=== PATIENT | female | born 1945 | race Caucasian/White ===

== ENCOUNTER 2019-06-18 13:18 | Inpatient (IN) | payer MEDICARE, BC ==
[~2019-06-18] VITALS: Ht 162.6 cm; Wt 51.7 kg
[2019-06-18 14:18] LABS: BASOPHILS # (AUTO) 0.1 X10'3 (0-0.2); BASOPHILS % (AUTO) 0.8 % (0-1); EOSINOPHILS # (AUTO) 0.1 X10'3 (0-0.9); EOSINOPHILS % (AUTO) 0.7 % (0-6); HEMATOCRIT 36.6 % (35.0-45.0); HEMOGLOBIN 12.3 g/dl (12.0-16.0); LYMPHOCYTES # (AUTO) 1.5 X10'3 (1.1-4.8); LYMPHOCYTES % (AUTO) 16.4 % (21-51); MEAN CORPUSCULAR HEMOGLOBIN 31.5 PG (27.0-31.0); MEAN CORPUSCULAR HGB CONC 33.5 g/dL (33.0-36.5); MONOCYTES # (AUTO) 0.7 X10'3 (0-0.9); MONOCYTES % (AUTO) 7.4 % (2-12); NEUTROPHILS % (AUTO) 74.7 % (42-75); PLATELET COUNT 362 X10'3 (140-440); RED BLOOD COUNT 3.89 X10'6 (4.20-5.60); RED CELL DISTRIBUTION WIDTH 12.4 % (11.5-14.5); WHITE BLOOD COUNT 9.4 X10'3 (4.5-11.0)
[2019-06-18] MEDS ORDERED: benzonatate 100mg capsule PO ONE (14:45)
[2019-06-18 14:49] LABS: ALANINE AMINOTRANSFERASE 59 U/L (12-78); ALBUMIN 2.8 G/DL (3.4-5.0); ALBUMIN/GLOBULIN RATIO 0.6 (1.1-1.5); ALKALINE PHOSPHATASE 249 IU/L (46-116); ANION GAP 13 (8-16); ASPARTATE AMINO TRANSFERASE 35 U/L (10-37); BILIRUBIN,TOTAL 0.5 MG/DL (0.1-1.0); BLOOD UREA NITROGEN 12 MG/DL (7-18); BUN/CREATININE RATIO 12.1 (6.6-38.0); CALCIUM 9.3 MG/DL (8.5-10.1); CHLORIDE 103 MMOL/L (99-107); CREATININE 0.99 MG/DL (0.40-0.90); GLUCOSE 104 MG/DL (70-104); SODIUM 142 MMOL/L (135-145); TOTAL CARBON DIOXIDE 25.7 MMOL/L (24-32); TOTAL PROTEIN 7.8 G/DL (6.4-8.2); eGFR 55 ML/MIN
[2019-06-18 14:55] LABS: POTASSIUM 2.8 MMOL/L (3.5-5.1)
[2019-06-18] MEDS ORDERED: dexamethasone sod phosphate 10mg/ml inj IV STA (14:58)
[2019-06-18] MEDS ORDERED: ipratropium/albuterol 3ml nebule NEB ONE (15:00)
[2019-06-18] MEDS ORDERED: normal saline 1000ML IV soln IVB ONE (15:00)
[2019-06-18] MEDS ORDERED: azithromycin/NS 500mg/250ml 250 ML IV ONE (15:00)
[2019-06-18] MEDS ORDERED: potassium Cl 10 mEq/100mL bag IV ONE (15:05)
[2019-06-18] MEDS ORDERED: magnesium 2GM in 50ml NS 50 ML IV ONE (15:05)
[2019-06-18] MEDS ORDERED: potassium CL 10mEq/100ml bag 100 ML IV PRN (16:45)
[2019-06-18] MEDS ORDERED: potassium Cl 20 mEq SR tablet PO PRN ×2 (16:45)
[2019-06-18] MEDS ORDERED: ondansetron/PF 4mg/2ml inj IV PRN (16:45)
[2019-06-18] MEDS ORDERED: acetaminophen 325mg tablet PO PRN (16:45)
[2019-06-18] MEDS ORDERED: HYDROcodone/acetaminophen 5mg/325mg tablet PO PRN (16:45)
[2019-06-18] MEDS ORDERED: FLUO20CA39 PO ×2 (16:52→16:54)
[2019-06-18] MEDS ORDERED: LEVO75TA PO (16:53)
[2019-06-18] MEDS ORDERED: oseltamivir phos 75mg capsule PO ONE (16:55)
[2019-06-18] MEDS ORDERED: ATOR10TA PO (16:55)
[2019-06-18 17:06] LABS: CLARITY,URINE SLIGHTLY CLOUDY (Clear); COLOR,URINE YELLOW (Yellow); GLUCOSE, URINE NEGATIVE (Neg); KETONES,URINE 15 mg/dl (Neg); LEUKOCYTE ESTERASE ,URINE SMALL (Neg); NITRITES, URINE NEGATIVE (Neg); OCCULT BLOOD,URINE TRACE-INTACT (Neg); PROTEIN,URINE 30 mg/dl (Neg)
[2019-06-18 17:07] LABS: UA COLLECTION TYPE CLN CATCH MIDSTREAM
[2019-06-18 17:11] LABS: BACTERIA,URINE 1+ /HPF (Neg); RBC,URINE 0-2 /HPF (0-2); SQUAMOUS EPITHELIAL CELL,UR MODERATE /LPF (FEW)
[2019-06-18 17:12] LABS: MUCUS STRANDS MODERATE /LPF (Neg); WBC CLUMPS,URINE FEW /HPF (NEGATIVE); WBC,URINE 50-100 /HPF (0-4)
[2019-06-18 17:30] LABS: CHOL/HDL RATIO 3.1 (0.00-4.99); CHOLESTEROL 138 MG/DL (0-200); HDL CHOLESTEROL 44 MG/DL (35-60); LDL CHOLESTEROL 75 MG/DL (50-100); TRIGLYCERIDES 111 MG/DL (20-135)
[2019-06-18] MEDS: normal saline 1000ml 1,000 ML IV SCH ×2 (17:36→20:06)
[2019-06-18] MEDS: potassium CL 10mEq/100ml bag 100 ML IV PRN ×3 (20:05→23:50)
[2019-06-18] MEDS: heparin, porcine 5000 units/ml vial SQ SCH (20:15)
[2019-06-18 20:30] VITALS: BP 136/60
--- NOTE | 2019-06-18 20:30 | NUR ---
Stephon called to give me report and go over plan of care 1944. I had the opportunity to ask questions. 1999 patient arrived via gurney with nurse transporting. Patient walked to hospital bed, in no apparent distress. Will continue to monitor.
[2019-06-18] MEDS ORDERED: codeine/proMETHazine 5ml UD syrup PO SCH (21:00)
[2019-06-18] MEDS ORDERED: temazepam 15mg capsule PO PRN (21:00)
[2019-06-19 01:02] VITALS: BP 153/57
[2019-06-19] MEDS: guaiFENesin/codeine phos 10ml UD oral syrup PO PRN ×2 (01:43→20:45)
[2019-06-19] MEDS: potassium CL 10mEq/100ml bag 100 ML IV PRN ×2 (01:45→05:11)
[2019-06-19] MEDS: normal saline 1000ml 1,000 ML IV SCH ×2 (03:46→03:50)
[2019-06-19 04:51] LABS: BASOPHILS % (AUTO) 0.1 % (0-1); EOSINOPHILS % (AUTO) 0 % (0-6); HEMOGLOBIN 10.2 g/dl (12.0-16.0); LYMPHOCYTES # (AUTO) 0.7 X10'3 (1.1-4.8); LYMPHOCYTES % (AUTO) 10.1 % (21-51); MEAN CORPUSCULAR HEMOGLOBIN 31.2 PG (27.0-31.0); MEAN CORPUSCULAR VOLUME 94.6 FL (78-98); MEAN PLATELET VOLUME 9.1 FL (7.4-10.4); MONOCYTES # (AUTO) 0.3 X10'3 (0-0.9); MONOCYTES % (AUTO) 4.6 % (2-12); NEUTROPHILS # (AUTO) 6.2 X10'3 (1.8-7.7); NEUTROPHILS % (AUTO) 85.2 % (42-75); PLATELET COUNT 270 X10'3 (140-440); RED BLOOD COUNT 3.27 X10'6 (4.20-5.60); RED CELL DISTRIBUTION WIDTH 12.6 % (11.5-14.5); WHITE BLOOD COUNT 7.2 X10'3 (4.5-11.0)
[2019-06-19 04:59] LABS: ALBUMIN 2.3 G/DL (3.4-5.0); ANION GAP 13 (8-16); BLOOD UREA NITROGEN 11 MG/DL (7-18); BUN/CREATININE RATIO 14.9 (6.6-38.0); CALCIUM 7.4 MG/DL (8.5-10.1); CHLORIDE 109 MMOL/L (99-107); CREATININE 0.74 MG/DL (0.40-0.90); GLUCOSE 124 MG/DL (70-104); POTASSIUM 3.4 MMOL/L (3.5-5.1); SODIUM 145 MMOL/L (135-145); TOTAL CARBON DIOXIDE 22.8 MMOL/L (24-32); eGFR 77 ML/MIN
--- NOTE | 2019-06-19 06:06 | NUR ---
Problems reprioritized. Patient report given, questions answered & plan of care reviewed with ALEX Hurtado.
--- NOTE | 2019-06-19 06:10 | NUR ---
Patient in room [facility]. I have received report from ALEX Snow and had the opportunity to ask questions and assume patient care.
[2019-06-19 07:00] VITALS: BP 114/57
[2019-06-19] MEDS ORDERED: FLUoxetine 20mg capsule PO SCH (08:00)
[2019-06-19] MEDS: K and/or MAG REPLACEMENT MC SCH (08:00)
[2019-06-19] MEDS: heparin, porcine 5000 units/ml vial SQ SCH ×2 (08:00→20:43)
[2019-06-19] MEDS ORDERED: potassium Cl 20 mEq SR tablet PO STA (10:25)
[2019-06-19] MEDS: levoTHYROXINE 75mcg tablet PO SCH (10:39)
[2019-06-19 11:00] VITALS: BP 136/67
[2019-06-19] MEDS: CefTRIAXone/D5W-Rocephin 1gm 50 ML IV SCH (15:27)
--- NOTE | 2019-06-19 18:36 | NUR ---
Patient in room [facility]. I have received report from ALEX Hurtado and had the opportunity to ask questions and assume patient care. Addendum: 06/19/19 at 1836 by Lynn Diamond RN Amended: Links added.
--- NOTE | 2019-06-19 18:36 | NUR ---
Problems reprioritized. Patient report given, questions answered & plan of care reviewed with Nicolette Eaton RN.
[2019-06-19 20:00] VITALS: BP 113/57
[2019-06-19] MEDS: lactobacillus rhamnosus 10,000 MMU CELLS/CAPSULE PO SCH (20:43)
[2019-06-20 00:37] VITALS: BP 120/58
[2019-06-20 04:31] LABS: BASOPHILS # (AUTO) 0.1 X10'3 (0-0.2); BASOPHILS % (AUTO) 0.6 % (0-1); EOSINOPHILS # (AUTO) 0.1 X10'3 (0-0.9); EOSINOPHILS % (AUTO) 0.8 % (0-6); HEMATOCRIT 29.7 % (35.0-45.0); LYMPHOCYTES # (AUTO) 2.5 X10'3 (1.1-4.8); LYMPHOCYTES % (AUTO) 26.8 % (21-51); MEAN CORPUSCULAR HEMOGLOBIN 31.7 PG (27.0-31.0); MEAN CORPUSCULAR HGB CONC 33.6 g/dL (33.0-36.5); MEAN CORPUSCULAR VOLUME 94.4 FL (78-98); MEAN PLATELET VOLUME 8.4 FL (7.4-10.4); MONOCYTES # (AUTO) 0.6 X10'3 (0-0.9); NEUTROPHILS # (AUTO) 6.1 X10'3 (1.8-7.7); NEUTROPHILS % (AUTO) 65.8 % (42-75); PLATELET COUNT 278 X10'3 (140-440); RED BLOOD COUNT 3.14 X10'6 (4.20-5.60); RED CELL DISTRIBUTION WIDTH 12.9 % (11.5-14.5); WHITE BLOOD COUNT 9.3 X10'3 (4.5-11.0)
[2019-06-20 05:22] LABS: ALBUMIN 2.3 G/DL (3.4-5.0); ANION GAP 9 (8-16); BLOOD UREA NITROGEN 10 MG/DL (7-18); BUN/CREATININE RATIO 11.1 (6.6-38.0); CALCIUM 8.1 MG/DL (8.5-10.1); CHLORIDE 109 MMOL/L (99-107); GLUCOSE 86 MG/DL (70-104); MAGNESIUM 2.2 MG/DL (1.5-2.4); PHOSPHORUS 2.4 MG/DL (2.3-4.5); POTASSIUM 3.6 MMOL/L (3.5-5.1); SODIUM 143 MMOL/L (135-145); TOTAL CARBON DIOXIDE 24.6 MMOL/L (24-32); eGFR 61 ML/MIN
--- NOTE | 2019-06-20 06:31 | NUR ---
Patient in room [facility]. I have received report from Nicolette Eaton RN and had the opportunity to ask questions and assume patient care.
--- NOTE | 2019-06-20 06:43 | NUR ---
Problems reprioritized. Patient report given, questions answered & plan of care reviewed with ALEX Hurtado.
[2019-06-20 07:00] VITALS: BP 111/47
[2019-06-20] MEDS: K and/or MAG REPLACEMENT MC SCH (08:00)
[2019-06-20] MEDS: lactobacillus rhamnosus 10,000 MMU CELLS/CAPSULE PO SCH ×2 (10:28→19:28)
[2019-06-20] MEDS: levoTHYROXINE 75mcg tablet PO SCH (10:28)
[2019-06-20] MEDS: CefTRIAXone/D5W-Rocephin 1gm 50 ML IV SCH (10:29)
[2019-06-20] MEDS: heparin, porcine 5000 units/ml vial SQ SCH ×2 (10:34→19:28)
[2019-06-20] MEDS: FLUoxetine 20mg capsule PO SCH (10:49)
[2019-06-20] MEDS: acetaminophen 325mg tablet PO PRN ×2 (10:52→19:28)
[2019-06-20 11:00] VITALS: BP 135/57
--- NOTE | 2019-06-20 18:08 | NUR ---
Problems reprioritized. Patient report given, questions answered & plan of care reviewed with Nicolette Eaton RN.
--- NOTE | 2019-06-20 18:11 | NUR ---
Patient in room [facility]. I have received report from ALEX COLLADO and had the opportunity to ask questions and assume patient care. Addendum: 06/20/19 at 1811 by Lynn Diamond RN Amended: Links added.
[2019-06-20 20:00] VITALS: BP 124/58
[2019-06-21] VITALS: BP 137/82
[2019-06-21 04:56] LABS: BASOPHILS # (AUTO) 0.1 X10'3 (0-0.2); BASOPHILS % (AUTO) 1.1 % (0-1); EOSINOPHILS # (AUTO) 0.2 X10'3 (0-0.9); EOSINOPHILS % (AUTO) 2.6 % (0-6); HEMATOCRIT 30.5 % (35.0-45.0); HEMOGLOBIN 10.2 g/dl (12.0-16.0); LYMPHOCYTES # (AUTO) 2.1 X10'3 (1.1-4.8); LYMPHOCYTES % (AUTO) 34.2 % (21-51); MEAN CORPUSCULAR HEMOGLOBIN 31.6 PG (27.0-31.0); MEAN CORPUSCULAR HGB CONC 33.4 g/dL (33.0-36.5); MEAN CORPUSCULAR VOLUME 94.6 FL (78-98); MEAN PLATELET VOLUME 8.5 FL (7.4-10.4); MONOCYTES # (AUTO) 0.4 X10'3 (0-0.9); MONOCYTES % (AUTO) 6.1 % (2-12); NEUTROPHILS # (AUTO) 3.4 X10'3 (1.8-7.7); PLATELET COUNT 292 X10'3 (140-440); RED BLOOD COUNT 3.22 X10'6 (4.20-5.60); RED CELL DISTRIBUTION WIDTH 12.6 % (11.5-14.5); WHITE BLOOD COUNT 6.1 X10'3 (4.5-11.0)
[2019-06-21 05:10] LABS: ALBUMIN 2.2 G/DL (3.4-5.0); ANION GAP 5 (8-16); BLOOD UREA NITROGEN 6 MG/DL (7-18); BUN/CREATININE RATIO 7.6 (6.6-38.0); CHLORIDE 109 MMOL/L (99-107); CREATININE 0.79 MG/DL (0.40-0.90); GLUCOSE 90 MG/DL (70-104); POTASSIUM 3.5 MMOL/L (3.5-5.1); SODIUM 144 MMOL/L (135-145); TOTAL CARBON DIOXIDE 29.7 MMOL/L (24-32); eGFR 71 ML/MIN
--- NOTE | 2019-06-21 06:45 | NUR ---
Problems reprioritized. Patient report given, questions answered & plan of care reviewed with ALEX Winkler.
--- NOTE | 2019-06-21 06:47 | NUR ---
Patient in room [facility]. I have received report from nahid boudreaux rn and had the opportunity to ask questions and assume patient care.
[2019-06-21 07:00] VITALS: BP 138/64
[2019-06-21] MEDS: CefTRIAXone/D5W-Rocephin 1gm 50 ML IV SCH (08:00)
[2019-06-21] MEDS: K and/or MAG REPLACEMENT MC SCH (08:00)
[2019-06-21] MEDS: heparin, porcine 5000 units/ml vial SQ SCH (08:01)
[2019-06-21] MEDS: lactobacillus rhamnosus 10,000 MMU CELLS/CAPSULE PO SCH (08:02)
[2019-06-21] MEDS: levoTHYROXINE 75mcg tablet PO SCH (08:02)
[2019-06-21] MEDS: FLUoxetine 20mg capsule PO SCH (08:02)
[2019-06-21] MEDS: acetaminophen 325mg tablet PO PRN (08:18)
[2019-06-21 11:00] VITALS: BP 115/57
--- NOTE | 2019-06-21 12:24 | NUR ---
patient seen by Dr Corbin, cdiff sample ordered for loose stool x2 days.. awaiting results. other meng appears stable.
[2019-06-21 13:56] LABS: C DIFF ANTIGEN NEGATIVE (NEGATIVE); C DIFF SPECIMEN=DIARRHEA? ACCEPTABLE; C DIFFICILE TOXINS A&B NEGATIVE (Neg)
[2019-06-21] MEDS ORDERED: LACT1CAP26 PO (15:23)
[2019-06-21] MEDS ORDERED: CEFD300C3 PO (15:23)
--- NOTE | 2019-06-21 16:46 | NUR ---
stool sample negative. patient for DC. All instructions given to patient. patient DC home in stable condition 1645hrs, via private car to home. with daughter.
== END 2019-06-21 16:39 | disposition home or self-care (01) | DRG 690 ==
LOC: ER 13:19 → OBSVTOIN 19:48 → SUR 3N 19:48 → CMPBEDREQ 19:58
PROVIDERS: ADMIT Internal Medicine; ATTEND Hospitalist
DX: N39.0 Urinary tract infection, site not specified (principal); E87.6 Hypokalemia; R19.7 Diarrhea, unspecified; T36.95XA Adverse effect of unspecified systemic antibiotic, initial encounter; J06.9 Acute upper respiratory infection, unspecified; Z87.442 Personal history of urinary calculi; Z87.891 Personal history of nicotine dependence
CPT/HCPCS: 36415; 71046; 80048; 80053; 80061; 81001; 83605; 83735; 84100; 84443; 85025; 87040; 87081; 87088; 87324; 87449; 87502; 87503; 94640; 94760; 96365; 96366; 96368; 96375; 97116; 97161; 97530; 99285; G0378; J0456; J0696; J1100; J1644; J2405; J3475; J3480; J7030

== ENCOUNTER 2019-08-02 14:24 | Inpatient (IN) | payer MEDICARE, BC ==
[~2019-08-02] VITALS: Ht 162.6 cm; Wt 58.0 kg
[~2019-08-02 14:24] MED LIST: ATOR10TA PO; FLUO20CA39 PO; LACT1CAP26 PO; LEVO75TA PO
[2019-08-02] MEDS ORDERED: ondansetron/PF 4mg/2ml inj IV ONE (14:30)
[2019-08-02] MEDS ORDERED: normal saline 1000ML IV soln IVB ONE (14:30)
[2019-08-02 14:46] LABS: BASOPHILS # (AUTO) 0.1 X10'3 (0-0.2); BASOPHILS % (AUTO) 0.9 % (0-1); EOSINOPHILS # (AUTO) 0.1 X10'3 (0-0.9); EOSINOPHILS % (AUTO) 0.7 % (0-6); HEMATOCRIT 36.6 % (35.0-45.0); HEMOGLOBIN 12.5 g/dl (12.0-16.0); LYMPHOCYTES # (AUTO) 3.1 X10'3 (1.1-4.8); LYMPHOCYTES % (AUTO) 43.6 % (21-51); MEAN CORPUSCULAR HEMOGLOBIN 32.1 PG (27.0-31.0); MEAN CORPUSCULAR HGB CONC 34.1 g/dL (33.0-36.5); MEAN PLATELET VOLUME 9.4 FL (7.4-10.4); MONOCYTES # (AUTO) 0.4 X10'3 (0-0.9); MONOCYTES % (AUTO) 6.4 % (2-12); NEUTROPHILS # (AUTO) 3.4 X10'3 (1.8-7.7); NEUTROPHILS % (AUTO) 48.4 % (42-75); PLATELET COUNT 259 X10'3 (140-440); RED BLOOD COUNT 3.89 X10'6 (4.20-5.60); RED CELL DISTRIBUTION WIDTH 13.4 % (11.5-14.5)
[2019-08-02] MEDS ORDERED: BUSP10TA3 PO (15:00)
[2019-08-02] MEDS ORDERED: ALEN70TA13 PO (15:00)
[2019-08-02 15:01] LABS: ALANINE AMINOTRANSFERASE 24 U/L (12-78); ALBUMIN 3.5 G/DL (3.4-5.0); ALBUMIN/GLOBULIN RATIO 0.9 (1.1-1.5); ALKALINE PHOSPHATASE 91 IU/L (46-116); ANION GAP 17 (8-16); ASPARTATE AMINO TRANSFERASE 18 U/L (10-37); BILIRUBIN,TOTAL 0.4 MG/DL (0.1-1.0); BLOOD UREA NITROGEN 12 MG/DL (7-18); CALCIUM 9.9 MG/DL (8.5-10.1); CHLORIDE 106 MMOL/L (99-107); GLUCOSE 135 MG/DL (70-104); LIPASE 152 U/L (73-393); SODIUM 143 MMOL/L (135-145); TOTAL PROTEIN 7.4 G/DL (6.4-8.2); eGFR 54 ML/MIN
[2019-08-02] MEDS ORDERED: LACT1CAP26 PO (15:01)
[2019-08-02 15:04] LABS: POTASSIUM 2.7 MMOL/L (3.5-5.1)
[2019-08-02] MEDS ORDERED: CHOL50004 PO (15:04)
[2019-08-02] MEDS ORDERED: VITA400C19 PO (15:04)
[2019-08-02] MEDS ORDERED: potassium Cl 10 mEq/100mL bag IV ONE (15:05)
[2019-08-02] MEDS ORDERED: potassium Cl 20 mEq SR tablet PO STA (15:05)
[2019-08-02] MEDS: morphine 4 MG/ML inj SYRINge IV PRN ×2 (15:25→15:48)
--- NOTE | 2019-08-02 16:07 | NUR ---
DOUGLAS CATH #16 FR INSERTED AND DRAINING YELLOW URINE.
[2019-08-02] MEDS ORDERED: mag hydrox/Alum hydrox/simeth 30ml oral suspension PO PRN (16:20)
[2019-08-02] MEDS ORDERED: magnesium 4gm in 100ml NS 100 ML IV PRN (16:20)
[2019-08-02] MEDS ORDERED: magnesium hydroxide 30ml (MOM) UD suspension PO PRN (16:20)
[2019-08-02] MEDS ORDERED: magnesium Cl slow-release 64mg tablet PO PRN (16:20)
[2019-08-02] MEDS ORDERED: potassium Cl 20 mEq SR tablet PO PRN (16:20)
[2019-08-02] MEDS ORDERED: acetaminophen 325mg tablet PO PRN ×2 (16:20)
[2019-08-02] MEDS ORDERED: magnesium 2GM in 50ml NS 50 ML IV PRN (16:20)
[2019-08-02] MEDS ORDERED: morphine 2 MG/ML inj. syringe IV PRN (16:20)
[2019-08-02] MEDS ORDERED: potassium CL 10mEq/100ml bag 100 ML IV PRN ×2 (16:20)
--- NOTE | 2019-08-02 16:20 | NUR ---
1620 PATIENT MOVED TO ORTHO BED WITH OVERHEAD FRAME AND TRAPEZE. WOOD HEEL FLAP INSERTER HERE AND APPLIED BUCKS TRACTION 5# TO RIGHT LEG.
--- NOTE | 2019-08-02 16:43 | NUR ---
AMANDA NURSE IN ROOM. FAMILY AT BEDSIDE.
[2019-08-02 16:54] LABS: CLARITY,URINE CLEAR (Clear); COLOR,URINE YELLOW (Yellow); GLUCOSE, URINE NEGATIVE (Neg); KETONES,URINE NEGATIVE (Neg); LEUKOCYTE ESTERASE ,URINE NEGATIVE (Neg); NITRITES, URINE NEGATIVE (Neg); OCCULT BLOOD,URINE TRACE-LYSED (Neg); PH,URINE 7.5 (4.8-8.0); PROTEIN,URINE NEGATIVE (Neg); UROBILINOGEN,URINE 0.2 E.U/dL (0.2-1.0)
[2019-08-02 17:01] LABS: UA COLLECTION TYPE OTHER
[2019-08-02 17:06] LABS: BACTERIA,URINE NONE SEEN /HPF (Neg); MUCUS STRANDS FEW /LPF (Neg); RBC,URINE 0-2 /HPF (0-2); SQUAMOUS EPITHELIAL CELL,UR FEW /LPF (FEW); TRANSITIONAL EPI CELLS,URINE FEW /HPF; WBC,URINE 0-4 /HPF (0-4)
[2019-08-02] MEDS ORDERED: non-formulary drug (Alendronate Sodium 1 TABLET) PO SCH (17:40)
[2019-08-02] MEDS: normal saline 1000ml 1,000 ML IV SCH (17:48)
--- NOTE | 2019-08-02 18:02 | NUR ---
DAUGHTER IS GONE FOR NOW. DOZING IN BED WITH BUCKS TX INTACT TO RIGHT LEG WITH 5# WEIGHT. VSS. CALM AT THIS TIME AND PAIN IS LESS THAN IT WAS ON ARRIVAL TO ER.
[2019-08-02 19:30] VITALS: BP 150/71
--- NOTE | 2019-08-02 19:30 | NUR ---
Received report from Caroline JOHNSON in the ED. patient is currently stable with daughter at bedside.
[2019-08-02] MEDS: busPIRone 5mg tablet PO SCH (19:44)
[2019-08-02] MEDS: heparin, porcine 5000 units/ml vial SQ SCH (19:45)
[2019-08-02] MEDS: HYDROcodone/acetaminophen 5mg/325mg tablet PO PRN (19:45)
[2019-08-02] MEDS: potassium Cl 20 mEq SR tablet PO PRN ×2 (19:46→23:47)
[2019-08-02] MEDS ORDERED: temazepam 15mg capsule PO PRN (21:00)
[2019-08-02 22:00] VITALS: BP 143/59
[2019-08-02] MEDS: morphine 2 MG/ML inj. syringe IV PRN (22:34)
[2019-08-02] MEDS: HYDROcodone/acetaminophen 10/325mg tab PO PRN (23:41)
[2019-08-03] VITALS (20 sets, daily range): BP systolic 86–109; BP diastolic 34–56
[2019-08-03] MEDS: morphine 2 MG/ML inj. syringe IV PRN ×2 (03:05→07:22)
[2019-08-03] MEDS: potassium Cl 20 mEq SR tablet PO PRN (03:55)
[2019-08-03] MEDS: normal saline 1000ml 1,000 ML IV SCH ×2 (05:39→15:32)
--- NOTE | 2019-08-03 06:00 | NUR ---
Patient in room [facility] 4020. I have received report from Eleanor JOHNSON and had the opportunity to ask questions and assume patient care.
--- NOTE | 2019-08-03 06:00 | NUR ---
Gave report to Mesha JOHNSON.
[2019-08-03] MEDS: HYDROcodone/acetaminophen 10/325mg tab PO PRN ×3 (06:13→19:07)
[2019-08-03 06:19] LABS: BASOPHILS % (AUTO) 0.3 % (0-1); EOSINOPHILS % (AUTO) 0.1 % (0-6); HEMATOCRIT 31.3 % (35.0-45.0); HEMOGLOBIN 10.5 g/dl (12.0-16.0); LYMPHOCYTES % (AUTO) 13.2 % (21-51); MEAN CORPUSCULAR HEMOGLOBIN 32.2 PG (27.0-31.0); MEAN CORPUSCULAR HGB CONC 33.5 g/dL (33.0-36.5); MEAN CORPUSCULAR VOLUME 96.1 FL (78-98); MEAN PLATELET VOLUME 9.6 FL (7.4-10.4); MONOCYTES # (AUTO) 0.6 X10'3 (0-0.9); MONOCYTES % (AUTO) 8.5 % (2-12); NEUTROPHILS # (AUTO) 5.8 X10'3 (1.8-7.7); NEUTROPHILS % (AUTO) 77.9 % (42-75); PLATELET COUNT 181 X10'3 (140-440); RED BLOOD COUNT 3.26 X10'6 (4.20-5.60); RED CELL DISTRIBUTION WIDTH 13.7 % (11.5-14.5); WHITE BLOOD COUNT 7.4 X10'3 (4.5-11.0)
[2019-08-03 06:26] LABS: ALBUMIN 2.9 G/DL (3.4-5.0); ANION GAP 7 (8-16); BLOOD UREA NITROGEN 11 MG/DL (7-18); BUN/CREATININE RATIO 13.1 (6.6-38.0); CALCIUM 7.7 MG/DL (8.5-10.1); CHLORIDE 108 MMOL/L (99-107); CREATININE 0.84 MG/DL (0.40-0.90); GLUCOSE 101 MG/DL (70-104); MAGNESIUM 1.9 MG/DL (1.5-2.4); POTASSIUM 3.8 MMOL/L (3.5-5.1); SODIUM 141 MMOL/L (135-145); TOTAL CARBON DIOXIDE 26.3 MMOL/L (24-32); eGFR 66 ML/MIN
[2019-08-03] MEDS: FLUoxetine 20mg capsule PO SCH (07:29)
[2019-08-03] MEDS: vitamin D (cholecalciferol) 1,000 unit tablet PO SCH (07:30)
[2019-08-03] MEDS: atorvastatin 10mg tablet PO SCH (07:32)
[2019-08-03] MEDS: busPIRone 5mg tablet PO SCH ×2 (07:32→19:07)
[2019-08-03] MEDS: K and/or MAG REPLACEMENT MC SCH (08:00)
[2019-08-03] MEDS: vitamin E 400 unit capsule PO SCH (08:00)
[2019-08-03] MEDS ORDERED: levoTHYROXINE 75mcg tablet PO SCH (08:00)
[2019-08-03] MEDS: heparin, porcine 5000 units/ml vial SQ SCH (08:00)
[2019-08-03] MEDS ORDERED: ringers solution, lacted 1,000 ML IV SCH (10:57)
[2019-08-03] MEDS: levoTHYROXINE 88mcg tablet PO SCH (11:00)
[2019-08-03] MEDS ORDERED: meperidine/PF 25mg/ml syringe IV PRN ×3 (11:00)
[2019-08-03] MEDS ORDERED: proCHLORperazine 10 MG/2 ml inj IV PRN (11:00)
[2019-08-03] MEDS ORDERED: morphine 4 MG/ML inj SYRINge IV PRN ×2 (11:00)
[2019-08-03] MEDS ORDERED: ondansetron/PF 4mg/2ml inj IV PRN (11:00)
[2019-08-03] MEDS ORDERED: ePHEDrine 50MG/ML INJ. ONE (11:08)
[2019-08-03] MEDS ORDERED: midazolam 2 mg/2 ml injection ONE (11:11)
[2019-08-03] MEDS ORDERED: fentaNYL/PF 50MCG/1 ML 2ML syringe ONE (11:11)
--- NOTE | 2019-08-03 12:32 | NUR ---
Received from OR via ORTHO BED WITH MSKIMBERLEE , accompanied by Anesthesiologist QUOC and report given by Anesthesiolgist. PATIENT WITH 20G PIV IN LEFT AC RUNNING LR AT 100. DENIES PAIN HOWEVER HAS FULL SENSATION. + DP TO RIGHT FOOT. RIGHT HIP DRESSINGS ARE CDI. 2 SEPARATE SITES. 3L NASAL CANNULA PRESENT WITH 3LPM AND 95% SATURATIONS. SCDS DONNED. DOUGLAS CATHETER PRESENT WITH CLEAR YELLOW URINE PRESENT. Addendum: 08/03/19 at 1243 by Sudheer Toussaint RN, RN Amended: Links added.
--- NOTE | 2019-08-03 13:22 | NUR ---
ALL CRITERIA FOR TRANSFER TO THE FLOOR HAS BEEN ACHIEVED. VSS. BED LOW, CALL LIGHT AND VS. SET IN PLACE. RN PRESENT TO ACCEPT CARE. PATIENT RESTING COMFORTABLY IN BED. BELONGINGS SENT WITH PATIENT. DRESSINGS CDI. ALEX MARTINEZ PRESENT TO ACCEPT CARE OF PATIENT. VSS. DAUGHTER AT BEDSIDE. Addendum: 08/03/19 at 1323 by Sudheer Bautista - ALEX JOHNSON Amended: Links added.
[2019-08-03] MEDS: ondansetron/PF 4mg/2ml inj IV PRN (14:18)
[2019-08-03] MEDS: ceFAZolin 1GM/D5W- ADD-VANTAGE 50 ML IV SCH (16:12)
--- NOTE | 2019-08-03 18:00 | NUR ---
Received report from Mesha JOHNSON. assumed care of patient.
--- NOTE | 2019-08-03 18:04 | NUR ---
Problems reprioritized. Patient report given, questions answered & plan of care reviewed with Eleanor RN.
[2019-08-03] MEDS ORDERED: normal saline 250ml IV soln 250 ML IV ONE (22:30)
--- NOTE | 2019-08-03 23:21 | NUR ---
Patients blood pressure at 22:00 was 99/34. patient is alert and oriented and asymptomatic. Gave a bolus 250 ml normal saline and rechecked it at 23:00. it was 101/36. called Dr. High and said that he was okay with that pressure. will continue to monitor patient.
[2019-08-04] MEDS: ceFAZolin 1GM/D5W- ADD-VANTAGE 50 ML IV SCH (00:12)
[2019-08-04 02:00] VITALS: BP 87/40
[2019-08-04] MEDS: normal saline 1000ml 1,000 ML IV SCH ×2 (03:05→13:29)
[2019-08-04] MEDS: HYDROcodone/acetaminophen 10/325mg tab PO PRN ×2 (05:01→10:47)
[2019-08-04 06:00] VITALS: BP 101/46
--- NOTE | 2019-08-04 06:00 | NUR ---
Gave report to Mesha JOHNSON.
[2019-08-04 06:09] LABS: BASOPHILS % (AUTO) 0.4 % (0-1); EOSINOPHILS % (AUTO) 0.2 % (0-6); HEMATOCRIT 22.8 % (35.0-45.0); HEMOGLOBIN 7.7 g/dl (12.0-16.0); LYMPHOCYTES # (AUTO) 0.9 X10'3 (1.1-4.8); LYMPHOCYTES % (AUTO) 14.6 % (21-51); MEAN CORPUSCULAR HEMOGLOBIN 32.6 PG (27.0-31.0); MEAN CORPUSCULAR HGB CONC 33.6 g/dL (33.0-36.5); MEAN CORPUSCULAR VOLUME 96.9 FL (78-98); MEAN PLATELET VOLUME 9.9 FL (7.4-10.4); MONOCYTES # (AUTO) 0.7 X10'3 (0-0.9); MONOCYTES % (AUTO) 11.1 % (2-12); NEUTROPHILS # (AUTO) 4.7 X10'3 (1.8-7.7); NEUTROPHILS % (AUTO) 73.7 % (42-75); PLATELET COUNT 129 X10'3 (140-440); RED BLOOD COUNT 2.35 X10'6 (4.20-5.60); RED CELL DISTRIBUTION WIDTH 13.9 % (11.5-14.5); WHITE BLOOD COUNT 6.4 X10'3 (4.5-11.0)
[2019-08-04 06:15] LABS: ALBUMIN 2.3 G/DL (3.4-5.0); ANION GAP 7 (8-16); BLOOD UREA NITROGEN 9 MG/DL (7-18); BUN/CREATININE RATIO 10.8 (6.6-38.0); CALCIUM 7.4 MG/DL (8.5-10.1); CHLORIDE 107 MMOL/L (99-107); CREATININE 0.83 MG/DL (0.40-0.90); GLUCOSE 107 MG/DL (70-104); MAGNESIUM 1.6 MG/DL (1.5-2.4); POTASSIUM 4.4 MMOL/L (3.5-5.1); SODIUM 136 MMOL/L (135-145); TOTAL CARBON DIOXIDE 22.4 MMOL/L (24-32); eGFR 67 ML/MIN
--- NOTE | 2019-08-04 06:35 | NUR ---
Patient in room [facility] 4020. I have received report from Eleanor JOHNSON and had the opportunity to ask questions and assume patient care.
[2019-08-04] MEDS: K and/or MAG REPLACEMENT MC SCH (08:00)
[2019-08-04] MEDS: FLUoxetine 20mg capsule PO SCH (08:03)
[2019-08-04] MEDS: busPIRone 5mg tablet PO SCH ×2 (08:03→19:14)
[2019-08-04] MEDS: vitamin E 400 unit capsule PO SCH (08:03)
[2019-08-04] MEDS: atorvastatin 10mg tablet PO SCH (08:03)
[2019-08-04] MEDS: levoTHYROXINE 88mcg tablet PO SCH (08:06)
[2019-08-04] MEDS: vitamin D (cholecalciferol) 1,000 unit tablet PO SCH (08:06)
[2019-08-04] MEDS: enoxaparin 40mg/0.4ml syringe SQ SCH (08:07)
[2019-08-04 10:00] VITALS: BP 97/42
[2019-08-04 18:00] VITALS: BP 100/51
--- NOTE | 2019-08-04 18:00 | NUR ---
Received report from Mesha JOHNSON. assumed care of patient.
--- NOTE | 2019-08-04 18:03 | NUR ---
Problems reprioritized. Patient report given, questions answered & plan of care reviewed with Eleanor RN.
--- NOTE | 2019-08-04 18:17 | NUR ---
Problems reprioritized. Patient report given, questions answered & plan of care reviewed with Eleanor RN.
[2019-08-04 22:00] VITALS: BP 106/45
--- NOTE | 2019-08-04 22:00 | NUR ---
Patients temperature is 101.1. went in to check on patient. administered tylenol. will continue to monitor. Addendum: 08/04/19 at 2244 by Eleanor Hollis RN encourage patient to utilize incentive spirometer
[2019-08-05] VITALS (8 sets, daily range): BP systolic 94–116; BP diastolic 42–59
[2019-08-05] MEDS: HYDROcodone/acetaminophen 5mg/325mg tablet PO PRN (01:20)
[2019-08-05] MEDS: normal saline 1000ml 1,000 ML IV SCH ×2 (03:02→15:13)
--- NOTE | 2019-08-05 03:30 | NUR ---
Asked patient if she could have someone bring in her home medication alendronate sodium for her osteoporosis, she stated she wasn't sure she could get someone to bring it in.
[2019-08-05] MEDS: HYDROcodone/acetaminophen 10/325mg tab PO PRN ×2 (05:19→21:18)
--- NOTE | 2019-08-05 06:10 | NUR ---
Gave report to Anamaria JOHNSON.
[2019-08-05 06:46] LABS: ALBUMIN 2.1 G/DL (3.4-5.0); ANION GAP 8 (8-16); BLOOD UREA NITROGEN 7 MG/DL (7-18); CALCIUM 7.8 MG/DL (8.5-10.1); CHLORIDE 106 MMOL/L (99-107); CREATININE 0.78 MG/DL (0.40-0.90); GLUCOSE 102 MG/DL (70-104); MAGNESIUM 1.8 MG/DL (1.5-2.4); POTASSIUM 3.7 MMOL/L (3.5-5.1); SODIUM 137 MMOL/L (135-145); TOTAL CARBON DIOXIDE 23.4 MMOL/L (24-32); eGFR 72 ML/MIN
[2019-08-05 06:47] LABS: BASOPHILS % (AUTO) 0.4 % (0-1); EOSINOPHILS % (AUTO) 0.2 % (0-6); HEMOGLOBIN 7.1 g/dl (12.0-16.0); LYMPHOCYTES # (AUTO) 1.2 X10'3 (1.1-4.8); LYMPHOCYTES % (AUTO) 17.7 % (21-51); MEAN CORPUSCULAR HEMOGLOBIN 32.9 PG (27.0-31.0); MEAN CORPUSCULAR VOLUME 96.7 FL (78-98); MONOCYTES # (AUTO) 0.6 X10'3 (0-0.9); MONOCYTES % (AUTO) 9.3 % (2-12); NEUTROPHILS # (AUTO) 4.9 X10'3 (1.8-7.7); NEUTROPHILS % (AUTO) 72.4 % (42-75); PLATELET COUNT 114 X10'3 (140-440); RED BLOOD COUNT 2.17 X10'6 (4.20-5.60); RED CELL DISTRIBUTION WIDTH 13.4 % (11.5-14.5); WHITE BLOOD COUNT 6.8 X10'3 (4.5-11.0)
[2019-08-05] MEDS: K and/or MAG REPLACEMENT MC SCH (08:00)
[2019-08-05] MEDS ORDERED: acetaminophen 325mg tablet PO ONE (08:20)
[2019-08-05] MEDS: vitamin D (cholecalciferol) 1,000 unit tablet PO SCH (09:42)
[2019-08-05] MEDS: busPIRone 5mg tablet PO SCH ×2 (09:42→21:18)
[2019-08-05] MEDS: atorvastatin 10mg tablet PO SCH (09:43)
[2019-08-05] MEDS: FLUoxetine 20mg capsule PO SCH (09:44)
[2019-08-05] MEDS: enoxaparin 40mg/0.4ml syringe SQ SCH (09:46)
[2019-08-05] MEDS: vitamin E 400 unit capsule PO SCH (09:47)
[2019-08-05] MEDS: ondansetron/PF 4mg/2ml inj IV PRN (09:48)
[2019-08-05] MEDS: levoTHYROXINE 88mcg tablet PO SCH (09:59)
[2019-08-05 14:16] LABS: HEMATOCRIT 25.9 % (35.0-45.0); HEMOGLOBIN 8.7 g/dl (12.0-16.0); MEAN CORPUSCULAR HEMOGLOBIN 31.8 PG (27.0-31.0); MEAN CORPUSCULAR HGB CONC 33.6 g/dL (33.0-36.5); MEAN CORPUSCULAR VOLUME 94.6 FL (78-98); MEAN PLATELET VOLUME 9.9 FL (7.4-10.4); PLATELET COUNT 123 X10'3 (140-440); RED BLOOD COUNT 2.74 X10'6 (4.20-5.60); RED CELL DISTRIBUTION WIDTH 14.1 % (11.5-14.5); WHITE BLOOD COUNT 6.5 X10'3 (4.5-11.0)
[2019-08-06 06:00] VITALS: BP 125/63
[2019-08-06 06:17] LABS: BASOPHILS % (AUTO) 0.5 % (0-1); EOSINOPHILS # (AUTO) 0.1 X10'3 (0-0.9); EOSINOPHILS % (AUTO) 1.3 % (0-6); HEMATOCRIT 24.1 % (35.0-45.0); HEMOGLOBIN 8.4 g/dl (12.0-16.0); LYMPHOCYTES % (AUTO) 14.9 % (21-51); MEAN CORPUSCULAR HEMOGLOBIN 32.6 PG (27.0-31.0); MEAN CORPUSCULAR HGB CONC 34.9 g/dL (33.0-36.5); MEAN CORPUSCULAR VOLUME 93.4 FL (78-98); MEAN PLATELET VOLUME 9.8 FL (7.4-10.4); MONOCYTES # (AUTO) 0.5 X10'3 (0-0.9); MONOCYTES % (AUTO) 6.9 % (2-12); NEUTROPHILS # (AUTO) 5.1 X10'3 (1.8-7.7); NEUTROPHILS % (AUTO) 76.4 % (42-75); PLATELET COUNT 147 X10'3 (140-440); RED BLOOD COUNT 2.58 X10'6 (4.20-5.60); RED CELL DISTRIBUTION WIDTH 14.7 % (11.5-14.5); WHITE BLOOD COUNT 6.7 X10'3 (4.5-11.0)
[2019-08-06 06:19] LABS: ANION GAP 7 (8-16); BLOOD UREA NITROGEN 8 MG/DL (7-18); BUN/CREATININE RATIO 11.4 (6.6-38.0); CHLORIDE 108 MMOL/L (99-107); GLUCOSE 97 MG/DL (70-104); POTASSIUM 3.5 MMOL/L (3.5-5.1); SODIUM 141 MMOL/L (135-145); TOTAL CARBON DIOXIDE 25.8 MMOL/L (24-32); eGFR 82 ML/MIN
[2019-08-06] MEDS: K and/or MAG REPLACEMENT MC SCH (08:00)
[2019-08-06] MEDS: levoTHYROXINE 88mcg tablet PO SCH (09:04)
[2019-08-06] MEDS: busPIRone 5mg tablet PO SCH (09:04)
[2019-08-06] MEDS: atorvastatin 10mg tablet PO SCH (09:05)
[2019-08-06] MEDS: FLUoxetine 20mg capsule PO SCH (09:07)
[2019-08-06] MEDS: vitamin D (cholecalciferol) 1,000 unit tablet PO SCH (09:08)
[2019-08-06] MEDS: vitamin E 400 unit capsule PO SCH (09:08)
[2019-08-06] MEDS: normal saline 1000ml 1,000 ML IV SCH (09:09)
[2019-08-06] MEDS: enoxaparin 40mg/0.4ml syringe SQ SCH (09:09)
[2019-08-06] MEDS: HYDROcodone/acetaminophen 10/325mg tab PO PRN (09:10)
[2019-08-06 10:00] VITALS: BP 122/57
--- NOTE | 2019-08-06 15:30 | NUR ---
[facility] IV dc'd LFA. No redness/swelling at IV site. Telemetry dc'd. Packed pt belongings. Called report to [facility] at 1430. [facility] arrived at 1530 to transfer pt via [facility] to short term rehab.
== END 2019-08-06 15:30 | DRG 480 ==
LOC: ER 14:25 → ED HOLD 16:16 → ORTHO 4S 19:18
PROVIDERS: ADMIT Internal Medicine; ATTEND Internal Medicine
PROC: 0QS606Z Reposition Right Upper Femur with Intramedullary Internal Fixation Device, Open Approach (ICD-10-PCS; principal; 2019-08-03 11:08)
PROC: 30233N1 Transfusion of Nonautologous Red Blood Cells into Peripheral Vein, Percutaneous Approach (ICD-10-PCS; 2019-08-05)
DX: S72.141A Displaced intertrochanteric fracture of right femur, initial encounter for closed fracture (principal); N17.0 Acute kidney failure with tubular necrosis; E43 Unspecified severe protein-calorie malnutrition; D62 Acute posthemorrhagic anemia; E03.9 Hypothyroidism, unspecified; E78.5 Hyperlipidemia, unspecified; E83.51 Hypocalcemia; E87.6 Hypokalemia; F32.9 Major depressive disorder, single episode, unspecified; F41.1 Generalized anxiety disorder; N18.3 Chronic kidney disease, stage 3 (moderate); M81.0 Age-related osteoporosis without current pathological fracture; S93.401A Sprain of unspecified ligament of right ankle, initial encounter; W01.0XXA Fall on same level from slipping, tripping and stumbling without subsequent striking against object, initial encounter; Y93.01 Activity, walking, marching and hiking; Y92.89 Other specified places as the place of occurrence of the external cause; Z68.21 Body mass index [BMI] 21.0-21.9, adult; Z79.899 Other long term (current) drug therapy; Z79.890 Hormone replacement therapy; Y99.8 Other external cause status; Z90.710 Acquired absence of both cervix and uterus
CPT/HCPCS: 36415; 71045; 73502; 73610; 76000; 80048; 80053; 81001; 82948; 83605; 83690; 83735; 84443; 85025; 85027; 86885; 86900; 86901; 86920; 87040; 87081; 93005; 96365; 96375; 97110; 97116; 97161; 97530; 99285; A4618; A6222; A7000; C1713; C1758; G0378; J0690; J1644; J1650; J2175; J2250; J2270; J2405; J3010; J3480; J7030; J7050; J7120; P9016

== ENCOUNTER 2019-08-17 20:52 | Emergency (ER) | payer MEDICARE, BC ==
[~2019-08-17] VITALS: Ht 162.6 cm; Wt 54.5 kg
[~2019-08-17 20:52] MED LIST changes: +ALEN70TA13 PO; +BUSP10TA3 PO; +CHOL50004 PO; +VITA400C19 PO
[2019-08-17] MEDS ORDERED: HYDROcodone/acetaminophen 10/325mg tab PO ONE (21:45)
[2019-08-17] MEDS ORDERED: ketorolac tromethamine 15mg/ml inj. IV ONE (21:45)
--- NOTE | 2019-08-17 22:08 | NUR ---
pt pain under control, 12/24, with administration of toradol and fentanyl given en route. pt would like to delay ordered [place] 10 until needed.
[2019-08-17 22:59] VITALS: BP 125/65
== END 2019-08-18 00:22 ==
LOC: ER 20:52
DX: G89.18 Other acute postprocedural pain (principal); M25.551 Pain in right hip; Z87.442 Personal history of urinary calculi; Z98.890 Other specified postprocedural states; Z88.5 Allergy status to narcotic agent; Z79.899 Other long term (current) drug therapy
CPT/HCPCS: 73502; 96374; 99284; J1885

== ENCOUNTER 2021-09-30 16:37 | Emergency (ER) | payer MEDICARE, BC ==
[~2021-09-30] VITALS: Ht 162.6 cm; Wt 53.0 kg
[~2021-09-30 16:37] MED LIST changes: -ALEN70TA13 PO; +ALEN70TA80 PO; +VITA-336 PO; -VITA400C19 PO
[2021-10-01] MEDS ORDERED: ACET-1025 PO (00:39)
[2021-10-01] MEDS ORDERED: HYDROcodone/acetaminophen 5mg/325mg tablet PO ONE (00:40)
[2021-10-01] MEDS ORDERED: ondansetron 4mg rapidly disintigrating tab PO ONE (00:40)
[2021-10-01 01:42] VITALS: BP 128/65
== END 2021-10-01 01:49 | disposition home or self-care (01) ==
LOC: ER 16:38
DX: S72.91XD Unspecified fracture of right femur, subsequent encounter for closed fracture with routine healing (principal); M25.551 Pain in right hip; Z87.442 Personal history of urinary calculi; Z98.890 Other specified postprocedural states; Z88.5 Allergy status to narcotic agent; Z79.899 Other long term (current) drug therapy; X58.XXXD Exposure to other specified factors, subsequent encounter
CPT/HCPCS: 73502; 73552; 99284